=== PATIENT | male | born 1975 | race African-American/Black ===

== ENCOUNTER 2017-03-28 23:59 | Emergency (ER) | payer OTHER ==
[~2017-03-28 23:59] MED LIST: AMOXICILLIN500 M1 PO; AURALGAN EAR DR14 ML OT; BACTRIM DS TABL1 TA1 PO; FLEXERIL10 M1 PO; FLEXERIL10 MG PO; IBUPROFEN800 MG PO; KEFLEX500 M1 PO; LORTAB 5/500 TA1 TA2 PO; MEDROL4 MG/DOSE- PO; NAPROSYN500 MG PO; NO MEDICATIONS; PREDNISONE PO; VICODIN 5/500 T1 TAB PO
[2017-03-29] MEDS ORDERED: LISINOPRIL10 MG PO (00:10)
== END 2017-03-29 01:40 | disposition home or self-care (01) ==
LOC: SED 23:59
DX: I83.892 Varicose veins of left lower extremity with other complications (principal); I10 Essential (primary) hypertension; F17.200 Nicotine dependence, unspecified, uncomplicated; X58.XXXA Exposure to other specified factors, initial encounter; Y92.9 Unspecified place or not applicable
CPT/HCPCS: 12001; 99283

== ENCOUNTER 2017-03-30 00:06 | Emergency (ER) | payer OTHER ==
[~2017-03-30 00:06] MED LIST changes: +LISINOPRIL10 MG PO
== END 2017-03-30 00:57 | disposition home or self-care (01) ==
LOC: SED 00:06
DX: I97.618 Postprocedural hemorrhage of a circulatory system organ or structure following other circulatory system procedure (principal); I10 Essential (primary) hypertension; Z79.899 Other long term (current) drug therapy
CPT/HCPCS: 99283